=== PATIENT | male | born 1980 | race Caucasian/White ===

== ENCOUNTER 2019-03-27 12:08 | Observation (INO) | payer OTHER ==
--- NOTE | 2019-03-27 13:08 | PDOC.FPRHP ---
- History of Present Illness Chief Complaint: Snake Bite History of Present Illness: 38 yo Pt was reaching in to look at a water meter early this morning and was bit on his 4th R. finger. Reports that he was bit by a copperhead. Happened at 9 :00. Pt reports feeling some swelling. Pt got scroll assembler-vikas at outside ER. Pt reports having some pain in his right arm and right side of his chest. Pt is otherwise healthy. Denies any nausea, vomiting, swelling outside of the affected finger, CP, or SOB. ED Course: Received 4g [employer] Cashier-frab and tetanus at [facility] - History PMHx: None PSHx: None FHx: Noncontributory Social: 1/2 ppd for 15 years. No illicit drug use. 3-4 beers a day. - Review of Systems General: denies: fever/chills, weight/appetite/sleep changes Eyes: denies: vision changes ENT: denies: other Respiratory: denies: cough, congestion, shortness of breath Cardiovascular: denies: chest pain, palpitation, edema Gastrointestinal: denies: nausea, vomiting, diarrhea, constipation Skin: denies: rashes, lesions Musculoskeletal: reports: pain (Pain in right finger and side.), stiffness, swelling (Pt has r. finger swelling.) Neurological: reports: numbness (On tip of right 4th finger) Psychological: denies: anxiety, depression - Vital signs BP: [154/100] HR: [82] RR: [18] Tmax: [98.7] Pox: [100]% on [RA] Wt: [] - Physical Exam Constitutional: NAD, awake, alert and oriented, well developed HEENT: normocephalic and atraumatic, EOMI, no scleral icterus Neck: supple, FROM Chest: no lesions Heart: RRR, normal S1/S2, no murmurs/rubs/gallops, pulses present, no edema Lungs: CTAB, no respiratory distress, no rales/rhonchi Abdomen: soft, non-tender, bowel sounds present Musculoskeletal: normal structure, normal tone, ROM grossly normal Neurological: no focal deficit, CN II-XII intact Skin: capillary refill <2 seconds -Skin: Pin point puncture to tip of right 4th digit with localized swelling and mild erythema to MIP joint Heme/Lymphatic: no unusual bruising or bleeding, no purpura, no petechia Psychiatric: normal mood and affect, good judgment and insight FMR H&P: Results - Labs Result Diagrams: 03/27/19 14:48 Lab results: [facility]: Normal coagulation studies, normal platelets, no lab abnormalities FMR H&P: A/P - Problem List (1) Snake envenomation Current Visit: Yes Status: Acute Code(s): T63.001A - TOXIC EFFECT OF UNSP SNAKE VENOM, ACCIDENTAL, INIT (2) Elevated blood pressure reading without diagnosis of hypertension Current Visit: Yes Status: Acute Code(s): R03.0 - ELEVATED BLOOD-PRESSURE READING, W/O DIAGNOSIS OF HTN - Plan Snake envenomation Bite by copperhead at 0900, 4g CroFab at 1100, normal coags, platelets, hgb, and CK at [facility] -Admit for observation and monitoring of coagulopathies, rhabdomyelitis, vascular compromise, or neurotoxicity -Pt instructed to notify if any change in swelling, erythema, or pain -Follow up coags 1800 and tomorrow am with hemagram -Will monitor at this time, additional CroFab if condition worsens Elevated blood pressure 150s/100s in the ED, states previously elevated readings before -pt not currently being treated for HTN, never before officially diagnosed -will continue to monitor readings -follow up and management as an outpt by PCP Code: Full Fluids: None Diet: Regular VTE: Not indicated Dispo: Admit to medical obs for serial evaluation of snake bite, expect LOS < 48hr FMR H&P: Upper Level - Pertinent history Pt was bit by snake while working on R. 4th finger. Pt reports pain and swelling in that finger. I was present with my internal security manager Dr. Khan and scribed for him as he took the history from the patient. I helped edit the above H&P and agree with everything above. - Pertinent findings R. 4th finger swollen. Has some decreased ROM and numbness at bite site but able to move. - Plan Date/Time: 03/27/19 1308 I, [Wilfrid Mccurdy MD], have evaluated this patient and agree with findings/plan as outlined by internal security manager resident. Pertinent changes/additions are listed here. Snake Bite -Has already received one dose [employer] Cashier-Vikas. -Coagulopathy labs stable. Will continue to trend. -Will continue with nkechi tylenol and ibupfren. Will continue morphine for breakthrough pain. -CK stable. Elevated BP w/o dx Hypertension -BP elevated. Possibly due to pain. States has had high BP in outside clinic. -Will continue to trend. F/u with PCP Addendum - Attending - Attending Attestation Date/Time: 03/27/192130 I personally evaluated the patient and discussed the management with Dr. Khan I agree with the History, Examination, Assessment and Plan documented above with any addition or exceptions noted below - 38 yo make with no significant PMH admitted with copperhead envenomation with strike to the right 4th digit of his hand. Initial labs and vitals within normal. Received crofab per protocol. Plan to repeat labs in 8 hours. Continue to monitor swelling and redness. Probable d/c tomorrow.
[2019-03-27] MEDS ORDERED: Morphine 4 MG/ML VIAL ONE (13:15)
[2019-03-27 13:19] LABS: Bilirubin Negative (Negative); Blood, Urine Negative (Negative); Clarity Clear (Clear); Glucose, Urine (Dipstick) Normal (Negative); Leukocyte Negative Leu/uL (Negative); Nitrite Negative (Negative); Protein, Urine (Dipstick) 10 mg/dL (Neg-Trace); Urobilinogen Normal mg/dL (Less than 2)
[2019-03-27] MEDS ORDERED: Ondansetron PF 4 MG/2 ML Vial IVP PRN (14:37)
[2019-03-27] MEDS ORDERED: Ondansetron ODT 4 MG TAB PO PRN (14:37)
[2019-03-27] MEDS ORDERED: Morphine 4 MG/ML VIAL SLOW IVP PRN (14:37)
[2019-03-27] MEDS ORDERED: Ibuprofen 600 MG TAB PO PRN (14:37)
[2019-03-27 14:59] VITALS: BMI 33.9
[2019-03-27 15:12] LABS: Hemoglobin 15.5 g/dL (14.0-18.0); Mean Corpuscular HGB CONC 34.5 g/dL (32.0-36.0); Mean Corpuscular Hemoglobin 31.7 pg (27.0-31.0); Mean Corpuscular Volume 91.9 fL (78.0-98.0); Platelet Count 241 thou/uL (130-400); RBC Distribution Width 12.4 % (11.5-14.5); Red Blood Cell (RBC) Count 4.87 mill/uL (4.70-6.10)
[2019-03-27] MEDS: Acetaminophen 325 MG TAB PO SCH ×2 (16:31→20:46)
[2019-03-27 18:57] LABS: PTT 31.6 SEC (22.9-36.1); Prothrombin Time 13.4 SEC (12.0-14.7)
[2019-03-28] MEDS: Acetaminophen 325 MG TAB PO SCH ×3 (00:14→08:38)
[2019-03-28 05:02] LABS: Hemoglobin 14.9 g/dL (14.0-18.0); Mean Corpuscular HGB CONC 34.3 g/dL (32.0-36.0); Mean Corpuscular Hemoglobin 31.5 pg (27.0-31.0); Mean Corpuscular Volume 91.9 fL (78.0-98.0); Mean Platelet Volume 7.8 fL (7.4-10.4); Platelet Count 211 thou/uL (130-400); RBC Distribution Width 12.5 % (11.5-14.5); Red Blood Cell (RBC) Count 4.74 mill/uL (4.70-6.10); White Blood Cell (WBC) Count 6.8 thou/uL (4.8-10.8)
[2019-03-28 05:15] LABS: PTT 33.5 SEC (22.9-36.1); Prothrombin Time 13.6 SEC (12.0-14.7)
--- NOTE | 2019-03-28 06:20 | PDOC.FM ---
- Subjective Subjective: Pt denies any events overnight. He stated that the discomfort in his arm and side resolved early last night. He feels the swelling in his finger has improved. He is eager to return home. - Objective Vital Signs & Weight: Vital Signs (12 hours) Temp Pulse Resp BP Pulse Ox 03/28/19 04:38 98.3 F 60 14 142/73 H 98 03/27/19 19:40 98.6 F 68 16 143/75 H 97 Weight Weight 110.223 kg I&O: 03/26/19 03/27/19 03/28/19 06:59 06:59 06:59 Intake Total 800 Balance 800 Result Diagrams: 03/28/19 04:26 Phys Exam - Physical Examination Constitutional: NAD HEENT: PERRLA, moist MMs Neck: supple, full ROM Respiratory: no wheezing, no rales, no rhonchi, clear to auscultation bilateral Cardiovascular: RRR, no significant murmur, no rub Gastrointestinal: soft, non-tender, no distention Musculoskeletal: pulses present Swelling to rt 4th digit from tip to MIP joint, near FROM Neurological: non-focal, normal sensation, moves all 4 limbs Psychiatric: normal affect, A&O x 3 Skin: no rash, cap refill <2 seconds Dx/Plan (1) Snake envenomation Code(s): T63.001A - TOXIC EFFECT OF UNSP SNAKE VENOM, ACCIDENTAL, INIT Status : Acute (2) Elevated blood pressure reading without diagnosis of hypertension Code(s): R03.0 - ELEVATED BLOOD-PRESSURE READING, W/O DIAGNOSIS OF HTN Status : Acute - Plan Plan: Snake envenomation Bite by copperhead at 0900, 4g CroFab at 1100, normal coags, platelets, hgb, and CK at [facility] -Admit for observation and monitoring of coagulopathies, rhabdomyelitis, vascular compromise, or neurotoxicity -Follow up coags and plts were normal x2 -No further CroFab required throughout stay -Pain managed with nkechi tylenol, no prn morphine needed -No signs of advancing disease Elevated blood pressure 150s/100s in the ED, states previously elevated readings before -pt not currently being treated for HTN, never before officially diagnosed -will continue to monitor readings -follow up and management as an outpt by PCP Code: Full Fluids: None Diet: Regular VTE: Not indicated Dispo: No complications of snake envenomation noted throughout stay, DC today with follow up
[2019-03-28 08:12] VITALS: BP 115/70; TEMP 98.1
--- NOTE | 2019-03-28 11:32 | PRG ---
DATE OF SERVICE: 03/28/2019 Mr. Cruz is a pleasant 38-year-old man, who was bitten yesterday morning on his right 4th finger by a copperhead snake. He went to an outlying ER and was given CroFab and transported to [facility] for higher level of care. His right ring finger does show some swelling and ecchymosis, but no evidence of compartment syndrome. The swelling has not progressed proximal to the MCP joint. There are no signs of infection. His coagulopathy studies have all been negative. He will be discharged today with followup with his PCP if needed in 3 to 5 days. He was given tetanus prophylaxis previously. Job ID: [id number]
--- NOTE | 2019-03-29 03:42 | DIS ---
DATE OF ADMISSION: 03/27/2019 DATE OF DISCHARGE: 03/28/2019 PRIMARY CARE PHYSICIAN: Vita Powers MD RESIDENT: Yunior Khan DO ADMITTING ATTENDING: Kelly Mcbride MD DISCHARGE ATTENDING: Guy Koroma MD CONSULTS: None. PROCEDURES: None. PRIMARY DIAGNOSIS: Snake envenomation. SECONDARY DIAGNOSIS: Elevated blood pressures without diagnosis of hypertension. DISCHARGE MEDICATIONS: Tylenol No: 3, 10 tablets p.r.n. for pain. HOSPITAL COURSE: The patient presented as a transfer from [facility] following a snake bite. The patient stated that at 9 a.m. was bitten by a copperhead snake, immediately he went to the [facility] ED and received 4 g of CroFab at that time. The patient stated that he was bitten on his right 4th finger at the very tip. After the bite, the finger started to become swollen and painful. After the administration of CroFab, the patient felt like his swelling had slightly reduced. Upon transfer, the patient said that he started to experience some mild discomfort in his medial arm and right latissimus. The patient was admitted for serial examination and management of the pain. Throughout the night, the patient stated that his pain improved and was controlled with scheduled Tylenol. He also felt like the swelling of his finger continued to gradually reduce. By the following morning, the patient stated that he was able to move his finger a lot more due to the reduced swelling and that he was having minimal pain. The patient was discharged with recommendation for light duty at work and not to be utilizing his right hand for the next few days. He was also advised to follow up with his PCP, Dr. Powers, regarding an elevated blood pressure reading as well as re-evaluation of the snake bite. The patient expressed understanding of return precautions and was discharged with appropriate pain medication. DISPOSITION: Stable. DISCHARGE INSTRUCTIONS: 1. Location: Home. 2. Diet: No restrictions. 3. Activity: Limited use of right hand and affected finger for the next 3 to 5 days. 4. Followup: Follow up PCP, Dr. Powers, within the next 7 days. Job ID: [id number]
== END 2019-03-28 11:37 | disposition home or self-care (01) ==
LOC: ERS 12:08 → ERHOLD 12:56 → 2SW 14:54
PROVIDERS: ADMIT Family Medicine; ATTEND Family Medicine
DX: T63.001A Toxic effect of unspecified snake venom, accidental (unintentional), initial encounter (principal); R03.0 Elevated blood-pressure reading, without diagnosis of hypertension; F17.210 Nicotine dependence, cigarettes, uncomplicated
CPT/HCPCS: 36415; 81003; 85027; 85610; 85730; 96374; G0378; J2270